=== PATIENT | male | born 1930 | race Caucasian/White ===

== ENCOUNTER → 2016-12-24 | Outpatient (CLI) | payer OTHER | LOC: MMPC 11:11 | PROVIDERS: ATTEND Internal Medicine | DX: I10 Essential (primary) hypertension (principal); L20.84 Intrinsic (allergic) eczema | CPT/HCPCS: 99213; G0463 ==

== ENCOUNTER → 2017-02-25 | Outpatient (CLI) | payer OTHER | LOC: MMPC 11:11 | PROVIDERS: ATTEND Physician Assistant | DX: J32.9 Chronic sinusitis, unspecified (principal) | CPT/HCPCS: 99213; G0463 ==

== ENCOUNTER 2017-03-04 07:06 | Inpatient (IN) | payer OTHER ==
[2017-03-04] MEDS ORDERED: Sodium Chloride 0.9% 1,000 ML PRIMARY IV ONE ×2 (07:39→10:52)
[2017-03-04] MEDS ORDERED: NORMAL SALINE 10 ML SYRINGE FLUSH IVP PRN ×2 (07:39→12:05)
--- NOTE | 2017-03-04 07:42 | PDOC ---
Nausea/Vomiting/Diarrhea HPI - General Chief Complaint: Abdomen Pain Stated Complaint: DIARRHEA AND ABD PAIN Date Seen by Provider: 03/04/17 Time Seen by Provider: 07:42 - History of Present Illness Initial Comments: This patient is a very nice 86-year-old gentleman who comes into the emergency department tonight with substantial diarrhea and some abdominal tenderness. He states that he was having sinus symptoms and then a few days ago he went to his primary care provider was given Augmentin for sinusitis and had a little bit of diarrhea and some abdominal upset after that but it was tolerable until last night when he was up not able to get any sleep through the night. He had persistent diarrhea around every 15 minutes through the night including abdominal cramping in general abdominal tenderness. He did not have any fever nor nausea or vomiting. He had no hematochezia. He said there is a little bit of solid to it but mostly watery. He has not had C. difficile infection in the past. He has had some mild diarrhea with antibiotics in the past but never a reaction like this. He denies any urinary symptoms currently. - Patient Home Medications Home Medications: Home Medications Bimatoprost [Lumigan] 2.5 ml OP QD #30 drp 08/20/15 Timolol Maleate 1 drop OP DAILY #30 drop 08/20/15 Losartan Potassium 1 tab PO QD #90 tab 09/24/16 Simvastatin 1 tab ORAL QHS #90 tab 09/24/16 Triamcinolone Acetonide 60 gm TOPICAL QID PRN #1 tube 12/24/16 Amoxicillin/Potassium Clav [Augmentin 875-125 Tablet] 1 tab PO Q12H #20 tab - Patient Allergies Allergies/Adverse Reactions: Allergies Allergy/AdvReac Type Severity Reaction Status Date / Time No Known Allergies Allergy Verified 03/04/17 07:26 Past Medical History - heen HEENT History: Glaucoma, Other (please comment) Additional HEENT History: 03/04/2017 BEING TREATED FOR SINUS INFECTION Cardiovascular History: Hypertension, Hyperlipidemia Respiratory History: COPD Gastrointestinal History: Denies History Genitourinary History: Denies History Endocrine History: Denies History Musculoskeletal History: Denies History Prosthesis or Implant: No Neurological History: Denies History Blood Disorders: Denies History Psychiatric History: Denies History History of Sexually Transmitted Diseases: No Cancer History: Skin In Past Year Been Physically Harmed or Verbally Threatened: No (PER PATIENT) History of MDRO: No History of Other Communicable Diseases: No Tobacco Use: Never Smoker Alcohol Use: Rarely Type of alcohol normally used: Beer Substance Use Type: None Previous Surgical History: Yes Type / Date of Surgery: APPENDECTOMY- 2003. HERNIA REPAIR- 2009 Anesthesia Reactions: No Malignant Hyperthermia: No Family History of Malignant Hyperthermia: No Significant Family History: No pertinent family hx Past Medical History Reviewed: Reviewed - No Changes ROS - Limitations ROS Limitations: No Limitations Constitution: REPORTS: Denies Symptoms Cardiovascular: REPORTS: Denies Cardiac Symptoms Respiratory: REPORTS: Denies Resp Symptoms Neurological: REPORTS: Denies Neuro Symptoms Nausea/Vomiting/Diarrhea Exam - General Appearance General Appearance: POSITIVE: Alert, Cooperative, No Acute Distress - HEENT HEENT: POSITIVE: Head Inspection Nml, Eyes Inspection Nml - Neck Neck: POSITIVE: Supple - Respiratory Respiratory: POSITIVE: No Respiratory Distress, Breath Sounds Normal - Cardiovascular Cardiovascular: POSITIVE: Regular Rate and Rhythm, Heart Sounds Normal - Abdomen Additional Abdominal Details: He has some vague mild discomfort through the abdomen with palpation more so in the left lower quadrant and the remainder of the abdomen no substantial guarding or rebound. Bowel tones slightly hyperactive N/V/D Progress - Results Reviewed by me Lab Results Reviewed: Yes Lab Results:: Laboratory Results 03/04/17 Range/Units 07:53 WBC 16.84 H (4.8-10.8) 10^3/uL RBC 4.51 L (4.70-6.10) 10^6/uL Hgb 13.9 L (14.0-18.0) g/dL Hct 41.8 L (42.0-52.0) % MCV 92.7 H (80-90) FL MCH 30.8 (27-31) PG MCHC 33.3 (33-37) g/dL RDW Std Deviation 49.2 (39-50) fL RDW Coeff of Genia 14.9 H (11.5-14.5) % Plt Count 252 (140-350) 10*3/uL MPV 9.0 (7.4-12.2) FL Immature Gran % (Auto) 0.2 (0-5) % Neut % (Auto) 89.9 H (50-80) % Lymph % (Auto) 2.6 L (10-50) % [place] % (Auto) 7.1 (5-15) % Eos % (Auto) 0.1 (0-8) % Baso % (Auto) 0.1 (0-1) % Immature Gran # (Auto) 0.03 10*3/UL Neut # (Auto) 15.14 10*3/UL Lymph # (Auto) 0.44 10*3/uL [place] # (Auto) 1.20 H (0.3-0.8) 10*3/UL Eos # (Auto) 0.01 10*3/UL Baso # (Auto) 0.02 10*3/UL WBC Morphology Comment Normal morphology (NORM) Plt Morphology Comment Normal morphology (NORM) RBC Morph Comment Normal morphology (NORM) Sodium 136 (135-145) meq/L Potassium 4.0 (3.8-5.2) meq/L Chloride 101 (98-112) meq/L Carbon Dioxide 26 (23-33) meq/L Anion Gap 9 (5-20) BUN 18 (7-22) mg/dL Creatinine 0.8 (0.70-1.50) mg/dL Estimated GFR (>60 ml/min/1.73m(2)) BUN/Creatinine Ratio 22.50 H (6-20) Glucose 110 (78-110) mg/dL Calculated Osmolality 284.0 (267-292) mOsm/kg Calcium 8.9 (8.7-10.7) mg/dL Total Bilirubin 0.9 (0.3-1.2) mg/dL AST 26 (21-57) IU/L ALT 33 (21-72) IU/L Alkaline Phosphatase 65 (38-126) IU/L Total Protein 7.3 (6.1-8.0) g/dL Albumin 4.1 (3.5-4.8) g/dL Globulin 3.2 (2.50-4.10) g/dL Albumin/Globulin Ratio 1.20 L (1.3-2.0) mg/g - Patient's Progress MDM / ED Course: Patient was admitted to the emergency department and initial evaluation showed some significant abdominal discomfort and with a story of recent antibiotic use and persistent diarrhea multiple stool studies were ordered and a CBC and a CMP as well. His CBC came back with a significantly elevated white blood cell count at greater than 16 and this was left shifted. With that a decision was made to obtain CT scan of his abdomen and pelvis to rule out any form of colonic perforation or other more complicating problem. He has been unable to give me a stool sample as of yet. He's also complaining of some bilateral flank pains we added a urinalysis and urine culture as needed. He is going to go over for his CT scan and we will await stool studies. He is a fairly stoic gentleman and has not required any pain medication as of yet. He did get a liter fluid bolus. Patient Care Time - Estimated PCT Patient Care Time (In Minutes): 40 Vital Signs - Recent Vital Signs Vital Signs: Vital Signs (Last 8 hours) Pulse Ox 03/04/17 07:06 96 - VS Reviewed Vital Signs Reviewed: Yes Discharge Clinical Impression: Diarrhea Qualifiers: Diarrhea type: unspecified type Qualifier Code: (R19.7) Diarrhea, unspecified Condition: Stable Follow Up With: EFRAIN MEHTA [Primary Care Provider] -
[2017-03-04 08:03] LABS: BASOPHILS # (AUTO) 0.02 10*3/UL; BASOPHILS % (AUTO) 0.1 % (0-1); EOSINOPHILS # (AUTO) 0.01 10*3/UL; EOSINOPHILS % (AUTO) 0.1 % (0-8); HEMATOCRIT 41.8 % (42.0-52.0); HEMOGLOBIN 13.9 g/dL (14.0-18.0); LYMPHOCYTES # (AUTO) 0.44 10*3/uL; MEAN CORPUSCULAR HEMOGLOBIN 30.8 PG (27-31); MEAN CORPUSCULAR HGB CONC 33.3 g/dL (33-37); MEAN CORPUSCULAR VOLUME 92.7 FL (80-90); MONOCYTES % (AUTO) 7.1 % (5-15); NEUTROPHILS # (AUTO) 15.14 10*3/UL; NEUTROPHILS % (AUTO) 89.9 % (50-80); RED BLOOD COUNT 4.51 10^6/uL (4.70-6.10)
[2017-03-04 08:12] LABS: BUN/CREATININE RATIO 22.5 (6-20); CALCIUM 8.9 mg/dL (8.7-10.7); SERUM ALBUMIN 4.1 g/dL (3.5-4.8)
[2017-03-04 08:15] LABS: PLATELET MORPHOLOGY COMMENT NORMAL MORPHOLOGY (NORM); RBC MORPHOLOGY COMMENT NORMAL MORPHOLOGY (NORM); WBC MORPHOLOGY COMMENT NORMAL MORPHOLOGY (NORM)
[2017-03-04 09:05] LABS: CLARITY,URINE CLEAR (CLEAR); COLOR,URINE YELLOW; URINE SAMPLE TYPE CLEAN CATCH URINE
[2017-03-04 09:06] LABS: BILIRUBIN,URINE SMALL (NEG); GLUCOSE, URINE (UA) NEGATIVE (NEG); NITRATE,URINE NEGATIVE (NEG); OCCULT BLOOD,URINE MODERATE (NEG); PROTEIN,URINE 30 mg/dl (NEG); UROBILINOGEN,URINE 0.2 EU/dL (0.2); WBC,URINE 0-2
--- NOTE | 2017-03-04 09:56 | DI ---
HISTORY: Abdominal pain and diarrhea PREVIOUS EXAM: None available. TECHNIQUE: Multiple helically acquired CT images are obtained through the abdomen and pelvis without contrast. FINDINGS: There is a density within the left lung base measuring 4 x 3 cm. Some mild subsegmental atelectasis is also noted. There is a very small pericardial effusion. There is mild fatty infiltration of the liver. The spleen, pancreas and adrenals are unremarkable. There are multiple bilateral renal cysts the largest is in the left upper lobe, and measures 6.2 cm i n diameter. The urinary bladder is unremarkable. Skeletal structures are also unremarkable. A few peripheral vascular calcifications are seen. The gallbladder is unremarkable. Peripheral vascular calcifications are seen. There is dextroscoliosi s of the thoracic spine with some levoscoliosis of the lumbar spine. IMPRESSION: 1. No acute intra-abdominal pathology. 2. 4 x 3 cm density within the left lung base. This could represent neoplasm or an early infection. R ecommend followup imaging as per Fleischner Society guidelines if this looks like a pneumonia. This d oes not look like a pneumonia. Biopsy should be considered.
--- NOTE | 2017-03-04 10:58 | PDOC ---
Abdomen/Flank HPI - General Chief Complaint: Abdomen Pain Stated Complaint: DIARRHEA AND ABD PAIN Date Seen by Provider: 03/04/17 Time Seen by Provider: 09:00 Source: POSITIVE: Patient, RN/MD, Other (son) Exam Limitations: POSITIVE: No limitations Nurse's Notes Reviewed & Considered: Yes - History of Present Illness Initial Comments: The patient is an 86-year-old male. Patient presents to the emergency room at around 7:30 AM today with complaint of severe diarrhea for approximately 2 on a half days. Patient is also had associated lower abdominal pain and cramping. He's not had any fevers that he is aware of and no chills. He states his stool is light colored and "watery or mushy". He states he's been averaging about 2 bowel movements per hour. No melena or hematochezia. Patient has been nauseated but has not been vomiting. Recent past medical history is significant in that for the past 7 days he has been taking either amoxicillin or Augmentin for a sinus infection. He's had an appendectomy and a hernia repair. 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 Patient [place] near his son [place] outside of [place]. History of hypertension and hypercholesterolemia for which he takes losartan and simvastatin. Patient was seen initially by Dr. John, ER physician on duty when the patient presented to the emergency room. I assumed care at 9 AM. Body Location Affected: REPORTS: Abdomen Timing: REPORTS: Constant Duration: >24 hours (2 to 2-1/2 days) Severity: Severe Quality: REPORTS: "Pain" (Lower abdominal cramping and pain; patient states his abdominal pain is less than it was last night.) Abdominal Pain Onset Location: REPORTS: RLQ, LLQ Abdominal Pain Radiation: REPORTS: No radiation Context: REPORTS: Other (Being treated with antibiotics for sinus infection) Modifying Factors: improves with: Defecating (Frequent diarrhea) Associated Symptoms: REPORTS: Nausea, Diarrhea, Mucous Diarrhea Similar Symptoms Previously: No Recent Care Received: REPORTS: Recently Seen, Treated by MD (Recently started on either amoxicillin or Augmentin for sinus infection; has been on this medication for the past 7 days.) Any Prior Injuries Related to Current Complaint?: No - Patient Home Medications Home Medications: Home Medications Bimatoprost [Lumigan] 2.5 ml OP QD #30 drp 08/20/15 Timolol Maleate 1 drop OP DAILY #30 drop 08/20/15 Losartan Potassium 1 tab PO QD #90 tab 09/24/16 Simvastatin 1 tab ORAL QHS #90 tab 09/24/16 Triamcinolone Acetonide 60 gm TOPICAL QID PRN #1 tube 12/24/16 Amoxicillin/Potassium Clav [Augmentin 875-125 Tablet] 1 tab PO Q12H #20 tab - Patient Allergies Allergies/Adverse Reactions: Allergies Allergy/AdvReac Type Severity Reaction Status Date / Time No Known Allergies Allergy Verified 03/04/17 07:26 Past Medical History - heen HEENT History: Glaucoma, Other (please comment) Additional HEENT History: 03/04/2017 BEING TREATED FOR SINUS INFECTION Cardiovascular History: Hypertension, Hyperlipidemia Respiratory History: COPD Gastrointestinal History: Denies History Genitourinary History: Denies History Endocrine History: Denies History Musculoskeletal History: Denies History Prosthesis or Implant: No Neurological History: Denies History Blood Disorders: Denies History Psychiatric History: Denies History History of Sexually Transmitted Diseases: No Cancer History: Skin In Past Year Been Physically Harmed or Verbally Threatened: No (PER PATIENT) History of MDRO: No History of Other Communicable Diseases: No Tobacco Use: Never Smoker Alcohol Use: Rarely Type of alcohol normally used: Beer Substance Use Type: None Previous Surgical History: Yes Type / Date of Surgery: APPENDECTOMY- 2002. HERNIA REPAIR- 2008 Anesthesia Reactions: No Malignant Hyperthermia: No Family History of Malignant Hyperthermia: No Significant Family History: No pertinent family hx Past Medical History Reviewed: Reviewed - No Changes ROS - Limitations ROS Limitations: No Limitations Constitution: REPORTS: Weakness Cardiovascular: REPORTS: Denies Cardiac Symptoms Respiratory: REPORTS: Denies Resp Symptoms Neurological: REPORTS: Denies Neuro Symptoms Gastrointestinal: REPORTS: Abdominal Pain, Nausea, Diarrhea Endocrine: REPORTS: Denies Symptoms Musculoskeletal: REPORTS: Denies MS Symptoms Genitourinary: REPORTS: Denies Symptoms Eyes: REPORTS: Denies Symptoms ENT: REPORTS: Denies Symptoms Skin: REPORTS: Denies Skin Symptoms Lympathic: REPORTS: Denies Lympathic Symptoms Immunologic: POSITIVE: Denies Symptoms Psychiatric: POSITIVE: Denies Psych Symptoms Abdominal/Flank Pain PE - General Appearance General Appearance: POSITIVE: Alert, Cooperative, No Acute Distress, No Evidence of Trauma - HEENT HEENT: POSITIVE: Head Inspection Nml, Eyes Inspection Nml, Ears Inspection Nml, Nose Inspection Nml, Oral/Dental Inspect. Nml, Pharynx Inspect. Nml, PERRL, EOMI - Neck Neck: POSITIVE: Normal Inspection, No Apparent Injury - Respiratory Respiratory: POSITIVE: No Respiratory Distress, Breath Sounds Normal, Chest Non- Tender - Cardiovascular Cardiovascular: POSITIVE: Regular Rate and Rhythm, Equal Pulses, Strong Pulses, Murmur (Systolic murmur heard best in the left sternal border; patient states he is aware that he has a heart murmur and states that his primary care physician, Dr. Mehta, is following this.). NEGATIVE: Heart Sounds Normal Peripheral Pulses: Radial (R): 2+, Radial (L): 2+ Murmur: Systolic: Grade 3 - Chest Chest: POSITIVE: Non Tender - Abdomen Abdomen: Soft: (LLQ), Normal Bowel Sounds: (LLQ), Denies Tenderness: (RUQ), (LUQ ), No Splenomegaly: (All Quadrants), No Hepatomegaly: (All Quadrants), No Guarding: (All Quadrants), No Rebound: (All Quadrants), No Palpable Pulse: (All Quadrants), No Palpabale Mass: (All Quadrants), No Distention: (All Quadrants), No Rigidity: (All Quadrants), Tenderness Noted: (RLQ), (LLQ) Additional Abdominal Details: Abdominal examination shows bowel sounds to be present. Patient does express some discomfort/pain on palpation lower abdomen, right equals left. No masses, organomegaly or rebound. - Back Back: POSITIVE: Normal Inspection. NEGATIVE: CVA Tenderness (R), CVA Tenderness (L) - Skin Skin: POSITIVE: Intact, Normal For Race, Warm, Dry, No Rash - Extremities Extremity: Non-Tender: (All Extremities), Normal ROM: (All Extremities), Normal Inspection: (All Extremities) - Neurological Neurological: POSITIVE: Oriented X3, vocational coordinator Normal As Tested, Motor Normal, Sensation Normal, 5, 6 - Psychological Psychiatric: POSITIVE: Affect Appropriate, Mood Appropriate Images - Complete Complete: 1 - Area of abdominal pain/tenderness Abdomen Progress - Results Reviewed by me Xrays/CTs/US Reviewed by me: Yes Discussed with Radiologist: Yes Radiology Findings: CT scan abdomen and pelvis with IV contrast read by radiologist as showing no acute intra-abdominal pathology. There is noted to be eighth 2.4 x 3 cm density left lung base. Lab Results Reviewed: Yes (Clostridium difficile positive) Lab Results:: Laboratory Results 03/04/17 03/04/17 03/04/17 Range/Units 07:53 08:50 09:35 WBC 16.84 H (4.8-10.8) 10^3/uL RBC 4.51 L (4.70-6.10) 10^6/uL Hgb 13.9 L (14.0-18.0) g/dL Hct 41.8 L (42.0-52.0) % MCV 92.7 H (80-90) FL MCH 30.8 (27-31) PG MCHC 33.3 (33-37) g/dL RDW Std Deviation 49.2 (39-50) fL RDW Coeff of Genia 14.9 H (11.5-14.5) % Plt Count 252 (140-350) 10*3/uL MPV 9.0 (7.4-12.2) FL Immature Gran % (Auto) 0.2 (0-5) % Neut % (Auto) 89.9 H (50-80) % Lymph % (Auto) 2.6 L (10-50) % [place] % (Auto) 7.1 (5-15) % Eos % (Auto) 0.1 (0-8) % Baso % (Auto) 0.1 (0-1) % Immature Gran # (Auto) 0.03 10*3/UL Neut # (Auto) 15.14 10*3/UL Lymph # (Auto) 0.44 10*3/uL [place] # (Auto) 1.20 H (0.3-0.8) 10*3/UL Eos # (Auto) 0.01 10*3/UL Baso # (Auto) 0.02 10*3/UL WBC Morphology Comment Normal morphology (NORM) Plt Morphology Comment Normal morphology (NORM) RBC Morph Comment Normal morphology (NORM) Sodium 136 (135-145) meq/L Potassium 4.0 (3.8-5.2) meq/L Chloride 101 (98-112) meq/L Carbon Dioxide 26 (23-33) meq/L Anion Gap 9 (5-20) BUN 18 (7-22) mg/dL Creatinine 0.8 (0.70-1.50) mg/dL Estimated GFR (>60 ml/min/1.73m(2)) BUN/Creatinine Ratio 22.50 H (6-20) Glucose 110 (78-110) mg/dL Calculated Osmolality 284.0 (267-292) mOsm/kg Calcium 8.9 (8.7-10.7) mg/dL Total Bilirubin 0.9 (0.3-1.2) mg/dL AST 26 (21-57) IU/L ALT 33 (21-72) IU/L Alkaline Phosphatase 65 (38-126) IU/L Total Protein 7.3 (6.1-8.0) g/dL Albumin 4.1 (3.5-4.8) g/dL Globulin 3.2 (2.50-4.10) g/dL Albumin/Globulin Ratio 1.20 L (1.3-2.0) mg/g Ur Collection Type Clean catch urine Urine Color Yellow Urine Clarity Clear (CLEAR) Urine pH 5.0 (5.0-8.5) Ur Specific [place] 1.025 (1.005-1.030) Urine Protein 30 (NEG) mg/dl Urine Glucose (UA) Negative (NEG) mg/dL Urine Ketones 40 (NEG) Urine Occult Blood Moderate H (NEG) Urine Nitrate Negative (NEG) Urine Bilirubin Small (NEG) Urine Urobilinogen 0.2 (0.2) EU/dL Ur Leukocyte Esterase Negative (NEG) Urine RBC 1-3 (NONE) /hpf Urine WBC 0-2 (NONE) Ur Squamous Epith Cells None (NONE) Ur Renal Epithelial Cell None (NONE) Urine Crystals None Urine Bacteria None (NONE) Urine Casts None (NONE) Urine Mucus Moderate (NONE) Urine Trichomonas None (NONE) Urine Yeast None (NONE) Ur Culture Indicated? Culture not set Stool Occult Blood Positive (NEGATIVE) - Patient's Progress Pain Medication Addressed: POSITIVE: Not Applicable School/Work Release Addressed: POSITIVE: Not Applicable Re-examine Time: 10:30 Re-Examine Comment: Patient states he feels considerably better after rehydration with somewhat over 1 L of normal saline. Diagnosis discussed with the patient and the patient's son. 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 It was decided to admit the patient for hydration and treatment of his Clostridium difficile infection. The son says that he can arrange for caregivers for the patient's . Case discussed with Dr. Rae, hospitalist, and patient is admitted for further evaluation and treatment. Hospitalist advised of the left lower lobe density incidentally found on CT scan of the abdomen and pelvis, and he will further evaluate this finding. Status: POSITIVE: Improved, Re-Examined - Consult Consult (If Yes, Name of Consulting MD & Time Called): Yes (Dr. Rae, hospitalist, [id number]) Consulting MD will see pt:: POSITIVE: [facility] [place] Admit Counseled: POSITIVE: Patient, Family, RE: Lab Results, RE: Radiology Results, RE : DX, RE: Need for F/U Patient Care Time - Estimated PCT Patient Care Time (In Minutes): 50 Vital Signs - Recent Vital Signs Vital Signs: Vital Signs (Last 8 hours) Pulse Ox 03/04/17 07:06 96 - VS Reviewed Vital Signs Reviewed: Yes (temp 99.2, blood pressure 110/74, heart rate 84, RR 16) Discharge Clinical Impression: Clostridium difficile diarrhea Diarrhea Qualifiers: Diarrhea type: unspecified type Qualifier Code: (R19.7) Diarrhea, unspecified Discharge Disposition: Admit to Inpatient Condition: Stable Follow Up With: EFRAIN MEHTA [Primary Care Provider] - Date Decision to Admit to Inpatient: 03/04/17 Time Decision to Admit to Inpatient: 10:00
[2017-03-04] MEDS ORDERED: LIDOCAINE W/ SODIUM BICARB 0.5 ML SYR SUBD PRN (12:05)
[2017-03-04] MEDS ORDERED: BIMATOPROST OP SCH (12:15)
--- NOTE | 2017-03-04 12:56 | PDOC ---
History and Physical - History of Present Illness Date and Time of Service: 03/04/2017 12:59 PM Chief Complaint: Diarrhea and abdominal pain of 4-6 days duration History of Present Illness: This is an 86 years old male with medical history significant for history of hypertension, hypercholesterolemia who came into the hospital because of diarrhea and abdominal pain. He said this started about 4-6 days ago he's been going multiple times to the bathroom probably more than 10 times. His pain mainly in the lower abdomen was severe last night couldn't sleep well because of that he came into the ER. He had multiple investigations in the ER including one that showed he had C. difficile and because of that he was admitted to the hospital. He did report that he had a sinus infection recently and was put on Augmentin. Currently after he got the fluid in the ER he feels better abdominal discomfort is better now. No nausea. He is denying other symptoms there's no cough no shortness of breath and no chest pain. Past Medical History Medical History: 1. Hypertension. 2. Hyperlipidemia Surgical History: 1. Appendectomy. 2. Hernia repair Family History: Reviewed an Not Pertinent Past Social History: Used to smoke quit many years ago smoked for 3-4 years only. Used to smoke only cigars. Rarely drinks. No drugs. Tobacco Use: Former Smoker (He smoked for 3-4 years when he was younger. Used to smoke cigars. Rarely drinks.) Do you dip or chew tobacco: No Substance Use Type: None Alcohol Use: Rarely Medication / Allergies Home Medications: Home Medications Medication Instructions Recorded Confirmed Type Bimatoprost [Lumigan] 2.5 ml OP QD #30 drp 08/20/15 03/04/17 History Timolol Maleate 1 drop OP DAILY #30 drop 08/20/15 03/04/17 History Losartan Potassium 1 tab PO QD #90 tab 09/24/16 03/04/17 Clinic Simvastatin 1 tab ORAL QHS #90 tab 09/24/16 03/04/17 Clinic Triamcinolone Acetonide 60 gm TOPICAL QID PRN #1 tube 12/24/16 03/04/17 Clinic Amoxicillin/Potassium Clav 1 tab PO Q12H #20 tab 02/25/17 03/04/17 Clinic [Augmentin 875-125 Tablet] Allergies/Adverse Reactions: Allergies Allergy/AdvReac Type Severity Reaction Status Date / Time No Known Allergies Allergy Verified 03/04/17 12:12 Review of Systems - Review of Systems All Systems: Reviewed & No Additional Complaints Except as Stated Exam - Vitals Vital Signs: Vital Signs Temperature 99.2 F Temperature Source Temporal Artery Scan Pulse Rate 84 Respiratory Rate 16 Blood Pressure 139/76 Pulse Ox 96 Height 5 ft 10 in Weight 148 lb 3.2 oz - General General Appearance: POSITIVE: No Acute Distress, Thin - Head Head Exam: POSITIVE: Normal Inspection - Eye Eye Exam: POSITIVE: Normal Appearance - ENT ENT Exam: POSITIVE: Normal Exam - Neck Neck Exam: POSITIVE: Normal Inspection - Respiratory Respiratory Exam: POSITIVE: Clear to Auscultation - Bilaterally - Cardiovascular Cardiovascular Exam: POSITIVE: RRR - GI/Abdominal GI/Abdominal Exam: POSITIVE: Normal Bowel Sounds, Non Tender, Non Distended, Soft - Rectal Rectal Exam: POSITIVE: Deferred - External Exam: POSITIVE: Deferred - Extremities Extremities Exam: POSITIVE: Normal Inspection - Back Back Exam: POSITIVE: Normal Inspection - Neurological Neurological Exam: POSITIVE: Alert, Oriented x 3, CN II-XII Intact, Speech Intact / Clear, Moves All Extremities Equally - Psychiatric Psychiatric Exam: POSITIVE: Normal Affect - Integumentary Integumentary Exam: POSITIVE: Normal Color Results - Labs CBC and BMP: 03/04/17 07:53 03/04/17 07:53 - Imaging Status: Report Reviewed by Me (CT abdomen showed no acute intra-abdominal pathology, there is a 2.4 x 3 cm density within the left lung base this may represent neoplasm or early infection. Recommend follow-up) Assessment and Plan - Patient Problems (1) C. difficile diarrhea Current Visit: Yes Status: Acute Comment: I think I will classify his the infection as being severe it's more than 10 times and his white count is more than 15,000. So will put him on vancomycin. We'll DC the Augmentin. (2) Lesion of lung Current Visit: Yes Status: Acute Comment: CT described a density in the lung, I think we'll hold on antibiotics, this need to be followed up later on as an outpatient.
[2017-03-04] MEDS: Sodium Chloride 0.9% 1,000 ML PRIMARY IV SCH ×2 (13:30→22:10)
[2017-03-04] MEDS: Sodium Chloride 0.9% 1,000 ML PRIMARY IV ONE ×2 (13:35→14:13)
[2017-03-04] MEDS: Vancomycin Oral Soln 125 MG/5 ML (7500MG/300ML) BOTTLE PO SCH ×2 (13:35→20:22)
[2017-03-04] MEDS: Simvastatin Tab 20 MG TAB PO SCH (20:22)
[2017-03-05] MEDS: Vancomycin Oral Soln 125 MG/5 ML (7500MG/300ML) BOTTLE PO SCH ×4 (00:35→18:56)
[2017-03-05] MEDS: Sodium Chloride 0.9% 1,000 ML PRIMARY IV SCH ×3 (00:35→14:16)
[2017-03-05 04:50] LABS: BASOPHILS # (AUTO) 0.02 10*3/UL; BASOPHILS % (AUTO) 0.2 % (0-1); HEMATOCRIT 35.6 % (42.0-52.0); HEMOGLOBIN 11.8 g/dL (14.0-18.0); LYMPHOCYTES # (AUTO) 0.96 10*3/uL; MEAN CORPUSCULAR HEMOGLOBIN 30.7 PG (27-31); MEAN CORPUSCULAR HGB CONC 33.1 g/dL (33-37); MEAN CORPUSCULAR VOLUME 92.7 FL (80-90); MEAN PLATELET VOLUME 9.4 FL (7.4-12.2); MONOCYTES # (AUTO) 1.21 10*3/UL (0.3-0.8); MONOCYTES % (AUTO) 11.6 % (5-15); NEUTROPHILS # (AUTO) 8.12 10*3/UL; NEUTROPHILS % (AUTO) 77.8 % (50-80); RED BLOOD COUNT 3.84 10^6/uL (4.70-6.10)
[2017-03-05 04:52] LABS: PLATELET MORPHOLOGY COMMENT NORMAL MORPHOLOGY (NORM); RBC MORPHOLOGY COMMENT NORMAL MORPHOLOGY (NORM); WBC MORPHOLOGY COMMENT NORMAL MORPHOLOGY (NORM)
[2017-03-05 04:54] LABS: BUN/CREATININE RATIO 18.57 (6-20); CALCIUM 7.7 mg/dL (8.7-10.7)
--- NOTE | 2017-03-05 07:42 | PDOC(PROG) ---
Date and Time of Service: 03/05/2017 7:41 AM Interval History: Subjective He is still going into the bathroom because of diarrhea nearly every hour but it 's tending to be more formed now. Still Having some cramps. But it is less than when he came in. No cough no shortness of breath. Objective : Data - Labs CBC and BMP: 03/05/17 04:30 03/05/17 04:30 Labs - Last 24 Hours: Laboratory Results 03/05/17 Range/Units 04:30 WBC 10.43 (4.8-10.8) 10^3/uL RBC 3.84 L (4.70-6.10) 10^6/uL Hgb 11.8 L (14.0-18.0) g/dL Hct 35.6 L (42.0-52.0) % MCV 92.7 H (80-90) FL MCH 30.7 (27-31) PG MCHC 33.1 (33-37) g/dL RDW Std Deviation 49.5 (39-50) fL RDW Coeff of Genia 14.9 H (11.5-14.5) % Plt Count 213 (140-350) 10*3/uL MPV 9.4 (7.4-12.2) FL Immature Gran % (Auto) 0.2 (0-5) % Neut % (Auto) 77.8 (50-80) % Lymph % (Auto) 9.2 L (10-50) % [place] % (Auto) 11.6 (5-15) % Eos % (Auto) 1.0 (0-8) % Baso % (Auto) 0.2 (0-1) % Immature Gran # (Auto) 0.02 10*3/UL Neut # (Auto) 8.12 10*3/UL Lymph # (Auto) 0.96 10*3/uL [place] # (Auto) 1.21 H (0.3-0.8) 10*3/UL Eos # (Auto) 0.10 10*3/UL Baso # (Auto) 0.02 10*3/UL WBC Morphology Comment Normal morphology (NORM) Plt Morphology Comment Normal morphology (NORM) RBC Morph Comment Normal morphology (NORM) Sodium 138 (135-145) meq/L Potassium 3.7 L (3.8-5.2) meq/L Chloride 108 (98-112) meq/L Carbon Dioxide 24 (23-33) meq/L Anion Gap 6 (5-20) BUN 13 (7-22) mg/dL Creatinine 0.7 (0.70-1.50) mg/dL Estimated GFR (>60 ml/min/1.73m(2)) BUN/Creatinine Ratio 18.57 (6-20) Glucose 100 (78-110) mg/dL Calculated Osmolality 285.0 (267-292) mOsm/kg Calcium 7.7 L (8.7-10.7) mg/dL Objective : Exam - General General Appearance: No Acute Distress, Cooperative, Thin - Head Head Exam: Normal Inspection - Eye Eye Exam: Normal Appearance - ENT ENT Exam: Normal Exam - Neck Neck Exam: Normal Inspection - Respiratory Respiratory Exam: Clear to Auscultation - Bilaterally - Cardiovascular Cardiovascular Exam: RRR - GI/Abdominal GI/Abdominal Exam: Normal Bowel Sounds, Non Tender, Non Distended, Soft - Rectal Rectal Exam: Deferred - External Exam: Deferred - Extremities Extremities Exam: Normal Inspection - Back Back Exam: Normal Inspection - Neurological Neurological Exam: Alert, Oriented x 3, CN II-XII Intact, Moves All Extremities Equally - Psychiatric Psychiatric Exam: Normal Affect - Integumentary Integumentary Exam: Normal Color Assessment and Plan - Patient Problems (1) C. difficile diarrhea Current Visit: Yes Status: Acute Comment: Continue current treatment with vancomycin. We'll cut back on his fluid may be home tomorrow. (2) Lesion of lung Current Visit: Yes Status: Acute Comment: We'll try to get an appointment with a assisted living associate for follow-up. I did explain that to him that he need follow-up for this lesion.
[2017-03-05] MEDS: TIMOLOL MALEATE OP SCH (08:38)
[2017-03-05] MEDS: LOSARTAN 50 MG TABLET PO SCH (08:38)
[2017-03-05] MEDS: Potassium Chloride Tab 10 MEQ TAB PO SCH (08:38)
[2017-03-05] MEDS: BIMATOPROST OP SCH (08:39)
[2017-03-05] MEDS: Simvastatin Tab 20 MG TAB PO SCH (21:18)
[2017-03-06] MEDS: Vancomycin Oral Soln 125 MG/5 ML (7500MG/300ML) BOTTLE PO SCH ×4 (01:31→19:23)
[2017-03-06 04:57] LABS: BASOPHILS # (AUTO) 0.02 10*3/UL; BASOPHILS % (AUTO) 0.3 % (0-1); EOSINOPHILS # (AUTO) 0.21 10*3/UL; EOSINOPHILS % (AUTO) 2.9 % (0-8); HEMATOCRIT 38.7 % (42.0-52.0); HEMOGLOBIN 12.7 g/dL (14.0-18.0); LYMPHOCYTES # (AUTO) 1.24 10*3/uL; MEAN CORPUSCULAR HEMOGLOBIN 30.2 PG (27-31); MEAN CORPUSCULAR HGB CONC 32.8 g/dL (33-37); MEAN CORPUSCULAR VOLUME 92.1 FL (80-90); MEAN PLATELET VOLUME 9.4 FL (7.4-12.2); MONOCYTES # (AUTO) 1.07 10*3/UL (0.3-0.8); MONOCYTES % (AUTO) 14.7 % (5-15); NEUTROPHILS # (AUTO) 4.73 10*3/UL
[2017-03-06 04:58] LABS: PLATELET MORPHOLOGY COMMENT NORMAL MORPHOLOGY (NORM); RBC MORPHOLOGY COMMENT NORMAL MORPHOLOGY (NORM); WBC MORPHOLOGY COMMENT NORMAL MORPHOLOGY (NORM)
[2017-03-06 04:59] LABS: BUN/CREATININE RATIO 14.28 (6-20)
[2017-03-06] MEDS: Sodium Chloride 0.9% 1,000 ML PRIMARY IV SCH ×3 (05:28→20:22)
--- NOTE | 2017-03-06 08:40 | PDOC(PROG) ---
Date and Time of Service: 03/06/2017 8:51 AM Interval History: Subjective Still have diarrhea, he said he went like 6 times overnight, still liquid. Still having cramps in his abdomen. Objective : Data - Labs CBC and BMP: 03/06/17 04:36 03/06/17 04:36 Labs - Last 24 Hours: Laboratory Results 03/06/17 Range/Units 04:36 WBC 7.28 (4.8-10.8) 10^3/uL RBC 4.20 L (4.70-6.10) 10^6/uL Hgb 12.7 L (14.0-18.0) g/dL Hct 38.7 L (42.0-52.0) % MCV 92.1 H (80-90) FL MCH 30.2 (27-31) PG MCHC 32.8 L (33-37) g/dL RDW Std Deviation 49.6 (39-50) fL RDW Coeff of Genia 15.1 H (11.5-14.5) % Plt Count 235 (140-350) 10*3/uL MPV 9.4 (7.4-12.2) FL Immature Gran % (Auto) 0.1 (0-5) % Neut % (Auto) 65.0 (50-80) % Lymph % (Auto) 17.0 (10-50) % [place] % (Auto) 14.7 (5-15) % Eos % (Auto) 2.9 (0-8) % Baso % (Auto) 0.3 (0-1) % Immature Gran # (Auto) 0.01 10*3/UL Neut # (Auto) 4.73 10*3/UL Lymph # (Auto) 1.24 10*3/uL [place] # (Auto) 1.07 H (0.3-0.8) 10*3/UL Eos # (Auto) 0.21 10*3/UL Baso # (Auto) 0.02 10*3/UL WBC Morphology Comment Normal morphology (NORM) Plt Morphology Comment Normal morphology (NORM) RBC Morph Comment Normal morphology (NORM) Sodium 139 (135-145) meq/L Potassium 3.8 (3.8-5.2) meq/L Chloride 107 (98-112) meq/L Carbon Dioxide 25 (23-33) meq/L Anion Gap 7 (5-20) BUN 10 (7-22) mg/dL Creatinine 0.7 (0.70-1.50) mg/dL Estimated GFR (>60 ml/min/1.73m(2)) BUN/Creatinine Ratio 14.28 (6-20) Glucose 101 (78-110) mg/dL Calculated Osmolality 286.0 (267-292) mOsm/kg Calcium 8.0 L (8.7-10.7) mg/dL Objective : Exam - General General Appearance: No Acute Distress, Cooperative, Thin - Head Head Exam: Normal Inspection - Eye Eye Exam: Normal Appearance - ENT ENT Exam: Normal Exam - Neck Neck Exam: Normal Inspection - Respiratory Respiratory Exam: Clear to Auscultation - Bilaterally - Cardiovascular Cardiovascular Exam: RRR - GI/Abdominal GI/Abdominal Exam: Normal Bowel Sounds, Non Tender, Non Distended, Soft - Rectal Rectal Exam: Deferred - External Exam: Deferred - Extremities Extremities Exam: Normal Inspection - Back Back Exam: Normal Inspection - Neurological Neurological Exam: Alert, Oriented x 3, CN II-XII Intact, Moves All Extremities Equally - Psychiatric Psychiatric Exam: Normal Affect - Integumentary Integumentary Exam: Normal Color Assessment and Plan - Patient Problems (1) C. difficile diarrhea Current Visit: Yes Status: Acute Comment: he continued to have frequent diarrhea I don't think he is ready to go home, will add probiotics. We'll keep her another day (2) Lesion of lung Current Visit: Yes Status: Acute Comment: We did a referral to Dr. Chavarria in [place] and they will contact him for an appointment.
[2017-03-06] MEDS: LOSARTAN 50 MG TABLET PO SCH (08:54)
[2017-03-06] MEDS: Potassium Chloride Tab 10 MEQ TAB PO SCH (08:54)
[2017-03-06] MEDS: ACIDOPHILUS/BULGARICUS CHEWABLE TABLET PO SCH ×3 (08:55→20:20)
[2017-03-06] MEDS: BIMATOPROST OP SCH (09:04)
[2017-03-06] MEDS: TIMOLOL MALEATE OP SCH (09:04)
[2017-03-06] MEDS: Simvastatin Tab 20 MG TAB PO SCH (20:20)
[2017-03-07] MEDS: Vancomycin Oral Soln 125 MG/5 ML (7500MG/300ML) BOTTLE PO SCH ×2 (02:20→07:56)
[2017-03-07 02:24] VITALS: RESP 20
[2017-03-07] MEDS: ACIDOPHILUS/BULGARICUS CHEWABLE TABLET PO SCH (08:35)
[2017-03-07] MEDS: LOSARTAN 50 MG TABLET PO SCH (08:35)
[2017-03-07] MEDS: Potassium Chloride Tab 10 MEQ TAB PO SCH (08:35)
--- NOTE | 2017-03-07 08:36 | DCSUMMARY ---
Hospitalization Summary Admit Date: 03/04/17 Discharge Date: 03/07/17 Hospital Course: Discharge diagnoses 1. C. difficile infection 2. 2.4 x 3 cm density within the left lung base, referral sent to pulmonology 3. Hypertension 4. Hyperlipidemia Hospital course This is a 86 years old male with medical history significant for history of hypertension, hyperlipidemia who came into the hospital because of diarrhea and abdominal pain. This started about 4-6 days before admission, he is being going multiple times the bathroom probably more than 10 times. His pain was mainly in the lower abdomen was severe. The night before admission he couldn't sleep well because of that he came into the ER. He had multiple investigations in the ER including 1 that showed he had a C. difficile infection. Because of that he was admitted to the hospital and he was dehydrated. He did report that he had a sinus infection recently and was put on Augmentin. He had a CT of the abdomen which showed no intra-abdominal pathology but there was a 2.4 cm x 3 cm density within the left lung base that represent infection or neoplasm. Patient was admitted to the hospital was put on IV fluid and we started him on vancomycin as his white count was elevated and we considered his infection as severe infection it took a couple days for his symptoms to improve and on the day of discharge he was feeling much better and his cramps are gone and the diarrhea resolved so we thought that he could be discharged home on an vancomycin and finishes course. Regarding the lung density we did refer him to Dr. Chavarria in [place] and then they will call him for an appointment. I did suggest t follow-up with his primary to make sure he gets appointment with the children librarian to make sure that he recovered completely from this infection. Laboratory Results 03/04/17 03/04/17 03/04/17 Range/Units 07:53 08:50 09:35 WBC 16.84 H (4.8-10.8) 10^3/uL RBC 4.51 L (4.70-6.10) 10^6/uL Hgb 13.9 L (14.0-18.0) g/dL Hct 41.8 L (42.0-52.0) % MCV 92.7 H (80-90) FL MCH 30.8 (27-31) PG MCHC 33.3 (33-37) g/dL RDW Std Deviation 49.2 (39-50) fL RDW Coeff of Genia 14.9 H (11.5-14.5) % Plt Count 252 (140-350) 10*3/uL MPV 9.0 (7.4-12.2) FL Immature Gran % (Auto) 0.2 (0-5) % Neut % (Auto) 89.9 H (50-80) % Lymph % (Auto) 2.6 L (10-50) % [place] % (Auto) 7.1 (5-15) % Eos % (Auto) 0.1 (0-8) % Baso % (Auto) 0.1 (0-1) % Immature Gran # (Auto) 0.03 10*3/UL Neut # (Auto) 15.14 10*3/UL Lymph # (Auto) 0.44 10*3/uL [place] # (Auto) 1.20 H (0.3-0.8) 10*3/UL Eos # (Auto) 0.01 10*3/UL Baso # (Auto) 0.02 10*3/UL WBC Morphology Comment Normal morphology (NORM) Plt Morphology Comment Normal morphology (NORM) RBC Morph Comment Normal morphology (NORM) Sodium 136 (135-145) meq/L Potassium 4.0 (3.8-5.2) meq/L Chloride 101 (98-112) meq/L Carbon Dioxide 26 (23-33) meq/L Anion Gap 9 (5-20) BUN 18 (7-22) mg/dL Creatinine 0.8 (0.70-1.50) mg/dL Estimated GFR (>60 ml/min/1.73m(2)) BUN/Creatinine Ratio 22.50 H (6-20) Glucose 110 (78-110) mg/dL Calculated Osmolality 284.0 (267-292) mOsm/kg Calcium 8.9 (8.7-10.7) mg/dL Total Bilirubin 0.9 (0.3-1.2) mg/dL AST 26 (21-57) IU/L ALT 33 (21-72) IU/L Alkaline Phosphatase 65 (38-126) IU/L Total Protein 7.3 (6.1-8.0) g/dL Albumin 4.1 (3.5-4.8) g/dL Globulin 3.2 (2.50-4.10) g/dL Albumin/Globulin Ratio 1.20 L (1.3-2.0) mg/g Ur Collection Type Clean catch urine Urine Color Yellow Urine Clarity Clear (CLEAR) Urine pH 5.0 (5.0-8.5) Ur Specific [place] 1.025 (1.005-1.030) Urine Protein 30 (NEG) mg/dl Urine Glucose (UA) Negative (NEG) mg/dL Urine Ketones 40 (NEG) Urine Occult Blood Moderate H (NEG) Urine Nitrate Negative (NEG) Urine Bilirubin Small (NEG) Urine Urobilinogen 0.2 (0.2) EU/dL Ur Leukocyte Esterase Negative (NEG) Urine RBC 1-3 (NONE) /hpf Urine WBC 0-2 (NONE) Ur Squamous Epith Cells None (NONE) Ur Renal Epithelial Cell None (NONE) Urine Crystals None Urine Bacteria None (NONE) Urine Casts None (NONE) Urine Mucus Moderate (NONE) Urine Trichomonas None (NONE) Urine Yeast None (NONE) Ur Culture Indicated? Culture not set Stool Occult Blood Positive (NEGATIVE) 03/05/17 03/06/17 Range/Units 04:30 04:36 WBC 10.43 7.28 (4.8-10.8) 10^3/uL RBC 3.84 L 4.20 L (4.70-6.10) 10^6/uL Hgb 11.8 L 12.7 L (14.0-18.0) g/dL Hct 35.6 L 38.7 L (42.0-52.0) % MCV 92.7 H 92.1 H (80-90) FL MCH 30.7 30.2 (27-31) PG MCHC 33.1 32.8 L (33-37) g/dL RDW Std Deviation 49.5 49.6 (39-50) fL RDW Coeff of Genia 14.9 H 15.1 H (11.5-14.5) % Plt Count 213 235 (140-350) 10*3/uL MPV 9.4 9.4 (7.4-12.2) FL Immature Gran % (Auto) 0.2 0.1 (0-5) % Neut % (Auto) 77.8 65.0 (50-80) % Lymph % (Auto) 9.2 L 17.0 (10-50) % [place] % (Auto) 11.6 14.7 (5-15) % Eos % (Auto) 1.0 2.9 (0-8) % Baso % (Auto) 0.2 0.3 (0-1) % Immature Gran # (Auto) 0.02 0.01 10*3/UL Neut # (Auto) 8.12 4.73 10*3/UL Lymph # (Auto) 0.96 1.24 10*3/uL [place] # (Auto) 1.21 H 1.07 H (0.3-0.8) 10*3/UL Eos # (Auto) 0.10 0.21 10*3/UL Baso # (Auto) 0.02 0.02 10*3/UL WBC Morphology Comment Normal morphology Normal morphology (NORM) Plt Morphology Comment Normal morphology Normal morphology (NORM) RBC Morph Comment Normal morphology Normal morphology (NORM) Sodium 138 139 (135-145) meq/L Potassium 3.7 L 3.8 (3.8-5.2) meq/L Chloride 108 107 (98-112) meq/L Carbon Dioxide 24 25 (23-33) meq/L Anion Gap 6 7 (5-20) BUN 13 10 (7-22) mg/dL Creatinine 0.7 0.7 (0.70-1.50) mg/dL Estimated GFR (>60 ml/min/1.73m(2)) BUN/Creatinine Ratio 18.57 14.28 (6-20) Glucose 100 101 (78-110) mg/dL Calculated Osmolality 285.0 286.0 (267-292) mOsm/kg Calcium 7.7 L 8.0 L (8.7-10.7) mg/dL Total Bilirubin (0.3-1.2) mg/dL AST (21-57) IU/L ALT (21-72) IU/L Alkaline Phosphatase (38-126) IU/L Total Protein (6.1-8.0) g/dL Albumin (3.5-4.8) g/dL Globulin (2.50-4.10) g/dL Albumin/Globulin Ratio (1.3-2.0) mg/g Ur Collection Type Urine Color Urine Clarity (CLEAR) Urine pH (5.0-8.5) Ur Specific [place] (1.005-1.030) Urine Protein (NEG) mg/dl Urine Glucose (UA) (NEG) mg/dL Urine Ketones (NEG) Urine Occult Blood (NEG) Urine Nitrate (NEG) Urine Bilirubin (NEG) Urine Urobilinogen (0.2) EU/dL Ur Leukocyte Esterase (NEG) Urine RBC (NONE) /hpf Urine WBC (NONE) Ur Squamous Epith Cells (NONE) Ur Renal Epithelial Cell (NONE) Urine Crystals Urine Bacteria (NONE) Urine Casts (NONE) Urine Mucus (NONE) Urine Trichomonas (NONE) Urine Yeast (NONE) Ur Culture Indicated? Stool Occult Blood (NEGATIVE) Discharge instruction Diet regular Activity as tolerated Medications Home Medications Medication Instructions Recorded Confirmed Type Bimatoprost [Lumigan] 2.5 ml OP QD #30 drp 08/20/15 03/04/17 History Timolol Maleate 1 drop OP DAILY #30 drop 08/20/15 03/04/17 History Losartan Potassium 1 tab PO QD #90 tab 09/24/16 03/04/17 Clinic Simvastatin 1 tab ORAL QHS #90 tab 09/24/16 03/04/17 Clinic Triamcinolone Acetonide 60 gm TOPICAL QID PRN #1 tube 12/24/16 03/04/17 Clinic Vancomycin Oral Soln 125 mg PO Q6H bottle 03/07/17 Rx Follow-up with PCP in 1-2 weeks Condition at discharge was stable for discharge Exam - Vitals Vital Signs: Vital Signs Temperature 98.0 F Temperature Source Temporal Artery Scan Pulse Rate [Pulse Oximeter] 68 Pulse Rate 84 Respiratory Rate 20 Blood Pressure [Left Arm] 158/78 Blood Pressure 139/76 Pulse Ox 95 Oxygen Delivery Method Room Air Height 5 ft 10 in Weight 149 lb 3.2 oz - General General Appearance: POSITIVE: No Acute Distress, Thin - Head Head Exam: POSITIVE: Normal Inspection, Atraumatic - Eye Eye Exam: POSITIVE: Normal Appearance - ENT ENT Exam: POSITIVE: Normal Exam - Neck Neck Exam: POSITIVE: Normal Inspection - Respiratory Respiratory Exam: POSITIVE: Clear to Auscultation - Bilaterally - Cardiovascular Cardiovascular Exam: POSITIVE: RRR - GI/Abdominal GI/Abdominal Exam: POSITIVE: Normal Bowel Sounds, Non Tender, Non Distended, Soft - Rectal Rectal Exam: POSITIVE: Deferred - External Exam: POSITIVE: Deferred - Extremities Extremities Exam: POSITIVE: Normal Inspection - Back Back Exam: POSITIVE: Normal Inspection - Neurological Neurological Exam: POSITIVE: Alert, Oriented x 3, CN II-XII Intact - Psychiatric Psychiatric Exam: POSITIVE: Normal Affect - Integumentary Integumentary Exam: POSITIVE: Normal Color Patient Problems - Patient Problem List (1) C. difficile diarrhea Current Visit: Yes Status: Acute (2) Lesion of lung Current Visit: Yes Status: Acute
[2017-03-07 09:29] VITALS: TEMP 97.8
[2017-03-07] MEDS: BIMATOPROST OP SCH (09:56)
[2017-03-07] MEDS: TIMOLOL MALEATE OP SCH (09:57)
== END 2017-03-07 10:05 | disposition home or self-care (01) | DRG 373 ==
LOC: ER 07:06 → MED/SURG 10:50
PROVIDERS: ADMIT Internal Medicine; ATTEND Internal Medicine
DX: A04.7 Enterocolitis due to Clostridium difficile (principal); R19.7 Diarrhea, unspecified; R91.1 Solitary pulmonary nodule
CPT/HCPCS: 36415; 74177; 80048; 80053; 81001; 81003; 82272; 85025; 87046; 87205; 87328; 87329; 87493; 96360; 99285; J7030